=== PATIENT | male | born 1995 | race Native Hawaiian/Other Pacific Islander ===

== ENCOUNTER 2016-09-20 18:28 | Emergency (ER) | payer SELFPAY ==
[2016-09-20] MEDS ORDERED: AZITHROMYCIN 500 MG TAB PO STA (19:59)
[2016-09-20] MEDS ORDERED: cefTRIAXone 250 MG VIAL IM STA (19:59)
[2016-09-20 20:29] LABS: Appearance,Urine Turbid (Clear); Bacteria,Urine Moderate /hpf; Bilirubin,Urine Negative (Negative); Glucose,Urine (UA) Negative (Negative); Ketones,Urine Negative (Negative); Leukocyte Esterase,Urine Large (Negative); Nitrite,Urine Negative (Negative); Particle Count 5805; Protein,Urine 2+ (Negative); RBC,Urine 85 /hpf (0-5); Sperm,Urine Few /hpf; UA Billing (MACRO vs. MICRO) MICRO; WBC,Urine >182 /hpf (0-5)
--- NOTE | 2016-09-20 20:57 | ED ---
Male Urogenital HPI - General Chief complaint: Urogenital Stated complaint: GROIN PAIN AND SWELLING Time Seen by Provider: 09/20/16 19:30 Source: patient Mode of arrival: ambulatory Limitations: no limitations - History of Present Illness Initial comments: Patient is a 21-year-old male without past medical history presenting with right testicle pain and swelling. Onset was 4 days ago. Patient has not tried anything for the pain. Patient does not relate anything that worsens the pain. Patient admits to STI treatment and November 2015. Patient states he's sexual active with multiple female partners. Patient denies penile discharge. Patient denies fever, chills, abdominal pain, nausea, vomiting, diarrhea, dysuria. Patient was offered STI prophylaxis for which he is accepting. - Related Data Previous Rx's Medication Instructions Recorded Doxycycline Monohydrate [Monodox] 100 mg PO Q12HR #28 cap 09/20/16 Allergies Allergy/AdvReac Type Severity Reaction Status Date / Time No Known Allergies Allergy Verified 09/20/16 19:52 Review of Systems ROS Statement: Those systems with pertinent positive or pertinent negative responses have been documented in the HPI. Constitutional: No fever and no chills. HENT: No congestion, no rhinorrhea and no sore throat. Eyes: No discharge and no redness. Respiratory: No cough and no shortness of breath. Cardiovascular: No chest pain and no palpitations. Gastrointestinal: No nausea, no vomiting, no abdominal pain and no diarrhea. Genitourinary: Positive testicular pain and swelling. No dysuria and no hematuria. Musculoskeletal: No back pain and no arthralgias. Skin: No pallor and no rash. Neurological: No dizziness and No headaches. ROS Other: All systems not noted in ROS Statement are negative. Past Medical History Past Medical History: No Reported History History of Any Multi-Drug Resistant Organisms: None Reported Past Surgical History: Appendectomy Past Psychological History: No Psychological Hx Reported Smoking Status: Never smoker Past Alcohol Use History: None Reported Past Drug Use History: None Reported General Exam - General Exam Comments Initial Comments: Constitutional: Patient appears well-developed and well-nourished. No distress. Head: Normocephalic and atraumatic. Eyes: Conjunctivae and EOM are normal. Right eye exhibits no discharge. Left eye exhibits no discharge. No scleral icterus. Neck: Normal range of motion. Neck supple. Cardiovascular: Normal rate and regular rhythm. No murmur heard. Pulmonary/Chest: Effort normal and breath sounds normal. No respiratory distress. No wheezes. Abdominal: Soft. No distension. There is no tenderness. There is no rebound and no guarding. Musculoskeletal: Normal range of motion. No edema or tenderness. exam performed with the nurse Uncircumcised penis, tender right testicle without obvious swelling. Bilateral nontender epididymis. Nontender left testicle. Cremasteric reflex present bilaterally. Normal lie of b/l testicles. No penile discharge. Nontender shaft of the penis. No inguinal hernias bilaterally. Neurological: Patient alert and oriented to person, place, and time. Skin: Skin is warm and dry. Not diaphoretic. Nursing notes and vitals reviewed. Limitations: no limitations Course Vital Signs 09/20/16 18:50 Temperature 98.1 F Pulse Rate 59 L Respiratory 20 Rate Blood Pressure 139/66 O2 Sat by Pulse 98 Oximetry - Reevaluation(s) Reevaluation #1: 09/20/16 22:54 Patient resting comfortably in bed. Updated on results. Medical Decision Making - Medical Decision Making Patient is a 21-year-old male presenting with right testicular pain and swelling. Ultrasound shows blood flow to both testicles. UA concerning for infection with greater than urine 182 WBCs. Patient also accepting STI prophylaxis. He will be treated with doxycycline for 2 weeks. Urine culture as well as gonorrhea and chlamydia cultures were sent. Patient informed to avoid sexual intercourse until urine cultures have resulted. Patient to take Motrin for his pain. Prior to discharge, patient was resting comfortably in bed. Course of stay improved. Denies pain. Discussed physical exam and diagnostic tests with patient. Questions answered and patient is agreeable to discharge with close follow up with Primary Care Physician. Instructed to return to Emergency Department if symptoms worsen. - Lab Data Lab Results 09/20/16 Range/Units 20:15 Urine Color Yellow Urine Appearance Turbid (Clear) Urine pH 6.0 (5.0-8.0) Ur Specific [place] 1.020 (1.001-1.035) Urine Protein 2+ H (Negative) Urine Glucose (UA) Negative (Negative) Urine Ketones Negative (Negative) Urine Blood Moderate H (Negative) Urine Nitrate Negative (Negative) Urine Bilirubin Negative (Negative) Urine Urobilinogen 2.0 (<2.0) mg/dL Ur Leukocyte Esterase Large H (Negative) Urine RBC 85 H (0-5) /hpf Urine WBC >182 H (0-5) /hpf Urine WBC Clumps Few H (None) /hpf Urine Bacteria Moderate H (None) /hpf Urine Sperm Few H (None) /hpf Disposition Clinical Impression: UTI (urinary tract infection), Orchitis Disposition: HOME SELF-CARE Condition: Good Instructions: Urinary Tract Infection in Men (ED), Testicle Pain (ED), Epididymo-Orchitis (ED) Prescriptions: Doxycycline Monohydrate [Monodox] 100 mg PO Q12HR #28 cap Referrals: None,Stated [Primary Care Provider] - 1-2 days Larry Lau MD [REFERRING] - 1-2 days
--- NOTE | 2016-09-20 21:43 | US ---
EXAMINATION TYPE: US scrotum with doppler. Grayscale and color Doppler Duplex imaging performed of t david scrotum. DATE OF EXAM: 09/20/2016 9:03 PM COMPARISON: NONE CLINICAL HISTORY: Pain and swelling in the right testicle x1 week. EXAM MEASUREMENTS: TESTICLES: Right Testicle: 4.6 x 2.2 x 3.0 cm Left Testicle: 4.7 x 2.3 x 2.8 cm EPIDIDYMIS HEAD: Right Epididymis: 0.8 cm Left Epididymis: 0.9 cm Doppler performed to assess for testicular vascularity; good bilateral color flow and waveforms are s een. There is no evidence of testicular torsion. Presence of hydroceles: Yes, on the left Presence of varicoceles: Yes, on the right NOTE: A few scattered tiny echognic foci are visualized , with acoustic shadowing, within the right testicle - consistent with microlithiasis IMPRESSION: 1 . NO ACUTE PROCESS. 2. Incidental finding: Microlithiasis right testicle.
[2016-09-20 23:06] VITALS: BP 128/72; PULSE 78; RESP 18; TEMP 97.6
== END 2016-09-20 23:05 | disposition home or self-care (01) ==
LOC: EC 18:28
DX: N39.0 Urinary tract infection, site not specified (principal); N45.2 Orchitis
CPT/HCPCS: 99283; 96372; 81001; 87491; 87591; 93975; 76870; J0696

== ENCOUNTER 2016-09-23 11:03 | Emergency (ER) | payer SELFPAY ==
[2016-09-23 11:14] VITALS: BP 125/66; PULSE 60; RESP 18; TEMP 99.3
--- NOTE | 2016-09-23 11:33 | ED ---
General Adult HPI - General Chief complaint: Recheck/Abnormal Lab/Rx Stated complaint: Swollen Lymphnode Time Seen by Provider: 09/23/16 11:19 Source: patient, RN notes reviewed Mode of arrival: ambulatory Limitations: no limitations - History of Present Illness Initial comments: 21-year-old male presents emergency Department stating that he has ongoing groin lymph nodes. Patient states his been on and off for last 2 years. Patient recently was here had shortness swelling. Patient labs were reviewed tested positive for chlamydia. Patient was given Rocephin and azithromycin. Patient states that he's had no fevers no chills no increased swelling. Patient states that he states is concerned disease had his ongoing lymph nodes and is concerned about cancer. Patient has not followed up as instructed. - Related Data Previous Rx's Medication Instructions Recorded Doxycycline Monohydrate [Monodox] 100 mg PO Q12HR #28 cap 09/20/16 Allergies Allergy/AdvReac Type Severity Reaction Status Date / Time No Known Allergies Allergy Verified 09/23/16 11:14 Review of Systems ROS Statement: Those systems with pertinent positive or pertinent negative responses have been documented in the HPI. ROS Other: All systems not noted in ROS Statement are negative. Past Medical History Past Medical History: No Reported History History of Any Multi-Drug Resistant Organisms: None Reported Past Surgical History: Appendectomy Past Psychological History: No Psychological Hx Reported Smoking Status: Never smoker Past Alcohol Use History: None Reported Past Drug Use History: None Reported General Exam Limitations: no limitations General appearance: alert, in no apparent distress Head exam: Present: atraumatic, normocephalic, normal inspection Neck exam: Present: normal inspection, full ROM. Absent: tenderness, meningismus, lymphadenopathy Respiratory exam: Present: normal lung sounds bilaterally. Absent: respiratory distress, wheezes, rales, rhonchi, stridor Cardiovascular Exam: Present: regular rate, normal rhythm, normal heart sounds. Absent: systolic murmur, diastolic murmur, rubs, gallop, clicks GI/Abdominal exam: Present: soft, normal bowel sounds. Absent: distended, tenderness, guarding, rebound, rigid Extremities exam: Present: other (Lymphadenopathy groin) Course Vital Signs 09/23/16 11:10 Temperature 99.3 F Pulse Rate 60 Respiratory 18 Rate Blood Pressure 125/66 O2 Sat by Pulse 99 Oximetry Medical Decision Making - Medical Decision Making 21-year-old male for lymph node swelling. Patient states this is ongoing. Patient is advised follow-up with oncologist/census taker. Number is provided. Patient agrees this plan. Patient was informed a does have Chlamydia. Disposition Clinical Impression: Chlamydia, Inguinal adenopathy Disposition: HOME SELF-CARE Condition: Stable Instructions: Chlamydia (ED) Additional Instructions: Please follow-up with outpatient resources primary care physician/oncologist. Please return to the Emergency Department if symptoms worsen or any other concerns. Referrals: Rosetta Karimi MD [STAFF PHYSICIAN] - 1-2 days Larry Lau MD [REFERRING] - 1-2 days Time of Disposition: 11:33
== END 2016-09-23 12:02 | disposition home or self-care (01) ==
LOC: EC 11:03
DX: R59.0 Localized enlarged lymph nodes (principal); A74.9 Chlamydial infection, unspecified
CPT/HCPCS: 99282

== ENCOUNTER 2017-06-12 18:46 | Emergency (ER) | payer OTHER ==
[2017-06-12 18:52] VITALS: RESP 16
--- NOTE | 2017-06-12 19:34 | XR ---
PROCEDURE: XR knee complete LT DATE AND TIME: 06/12/2017 7:09 PM REFERRING PHYSICIAN: Samaria Solis CLINICAL INDICATION: PHH, Pain TECHNIQUE: Department protocol. Previous. COMPARISON: None FINDINGS: There is no fracture or malalignment. The soft tissues are unremarkable. IMPRESSION: NO ACUTE PROCESS.
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
[2017-06-12 19:49] VITALS: BP 128/79; PULSE 67; TEMP 98.2
== END 2017-06-12 19:49 | disposition home or self-care (01) ==
LOC: EC 18:46
DX: S89.92XA Unspecified injury of left lower leg, initial encounter (principal); S50.811A Abrasion of right forearm, initial encounter; S50.812A Abrasion of left forearm, initial encounter; M67.432 Ganglion, left wrist; F17.200 Nicotine dependence, unspecified, uncomplicated; W03.XXXA Other fall on same level due to collision with another person, initial encounter; Y93.61 Activity, american tackle football
CPT/HCPCS: 99283 ×2; 73562; L1830

== ENCOUNTER 2019-11-06 00:38 | Emergency (ER) | payer OTHER ==
[2019-11-06] MEDS ORDERED: AZITHROMYCIN 500 MG TAB PO STA (00:48)
[2019-11-06] MEDS ORDERED: cefTRIAXone 250 MG VIAL IM STA (00:48)
[2019-11-06 00:59] VITALS: BP 118/74; PULSE 57; RESP 15; TEMP 98.1
--- NOTE | 2019-11-06 01:22 | ED ---
Male Urogenital HPI - General Chief complaint: Urogenital Stated complaint: Poss STI Source: patient Mode of arrival: ambulatory - History of Present Illness Initial comments: Patient is a 24-year-old male who states that he was told by a sexual partner that she had been treated for a sexual transmitted disease and that he needed to be tested and treated. He is uncertain what she was diagnosed with. Patient reports he's not having any symptoms he has no dysuria hematuria he has no rash or lesions on his genitals. - Related Data Previous Rx's Medication Instructions Recorded Doxycycline Monohydrate [Monodox] 100 mg PO Q12HR #28 cap 09/20/16 Allergies Allergy/AdvReac Type Severity Reaction Status Date / Time No Known Allergies Allergy Verified 06/12/17 18:52 Review of Systems ROS Statement: Those systems with pertinent positive or pertinent negative responses have been documented in the HPI. ROS Other: All systems not noted in ROS Statement are negative. Past Medical History Past Medical History: No Reported History History of Any Multi-Drug Resistant Organisms: None Reported Past Surgical History: Appendectomy Additional Past Surgical History / Comment(s): Pt states he has joint issues. Past Psychological History: No Psychological Hx Reported Smoking Status: Light tobacco smoker Past Alcohol Use History: None Reported Past Drug Use History: None Reported General Exam Limitations: no limitations General appearance: alert, in no apparent distress Head exam: Present: atraumatic, normocephalic Eye exam: Present: normal appearance Respiratory exam: Absent: respiratory distress Cardiovascular Exam: Present: bradycardia GI/Abdominal exam: Absent: distended Rectal exam: Present: deferred Extremities exam: Present: full ROM Neurological exam: Present: alert Psychiatric exam: Present: normal affect, normal mood Skin exam: Present: warm, dry, intact Course Vital Signs 11/06/19 00:55 Temperature 98.1 F Pulse Rate 57 L Respiratory 15 Rate Blood Pressure 118/74 O2 Sat by Pulse 100 Oximetry Medical Decision Making - Medical Decision Making The patient was seen and evaluated patient provided a urine sample for STI testing Patient was treated empirically for gonorrhea, chlamydia and Trichomonas Patient was advised that he will be contacted for any positives and I will be in 2-3 days. All questions pertaining care were answered return parameters were discussed patient was discharged home in stable condition. Disposition Clinical Impression: Exposure to sexually transmitted disease (STD) Disposition: HOME SELF-CARE Condition: Stable Instructions (If sedation given, give patient instructions): Safe Sex (ED) Is patient prescribed a controlled substance at d/c from ED?: No Referrals: None,Stated [Primary Care Provider] - 1-2 days
[2019-11-06] MEDS ORDERED: metroNIDAZOLE 500 MG TAB PO STA (01:39)
== END 2019-11-06 01:59 | disposition home or self-care (01) ==
LOC: EC 00:38
DX: Z20.2 Contact with and (suspected) exposure to infections with a predominantly sexual mode of transmission (principal); R00.1 Bradycardia, unspecified; F17.210 Nicotine dependence, cigarettes, uncomplicated
CPT/HCPCS: 87491; 87591; 96372; 99283; J0696

== ENCOUNTER 2022-05-19 14:43 | Emergency (ER) | payer SELFPAY ==
[2022-05-19 14:48] VITALS: BP 146/72; PULSE 77; RESP 16; TEMP 98.5
[2022-05-19] MEDS ORDERED: metroNIDAZOLE 500 MG TAB PO STA (15:10)
[2022-05-19] MEDS ORDERED: cefTRIAXone 250 MG VIAL IM STA (15:10)
[2022-05-19] MEDS ORDERED: AZITHROMYCIN 500 MG TAB PO STA (15:10)
--- NOTE | 2022-05-19 15:15 | ED ---
General Adult HPI - General Chief complaint: Urogenital Stated complaint: STI testing,poss cyst on face/hands Time Seen by Provider: 05/19/22 15:04 Source: patient Mode of arrival: ambulatory Limitations: no limitations - History of Present Illness Initial comments: Dictation was produced using [employer] dictation software. please excuse any grammatical, word or spelling errors. Chief Complaint: 27 yo male presents emergency department for STD check History of Present Illness: 27-year-old male presents emergency department for STD check. Patient has been told by a female that he's been having sexual relations with that he should get tested. Unclear if this female that he's encountered had tested positive for anything. Patient denies any symptoms. Denies any dysuria. Denies any fever. No arthralgias. Denies any genital lesions. The ROS documented in this emergency department record has been reviewed and confirmed by me. Those systems with pertinent positive or negative responses have been documented in the HPI. All other systems are other negative and/or noncontributory. PHYSICAL EXAM: General Impression: Alert and oriented x3, not in acute distress HEENT: Normocephalic atraumatic, extra-ocular movements intact, pupils equal and reactive to light bilaterally, mucous membranes moist. Cardiovascular: Heart regular rate and rhythm Chest: Able to complete full sentences, no retractions, no tachypnea Abdomen: abdomen soft, non-tender, non-distended, no organomegaly Musculoskeletal: Pulses present and equal in all extremities, no peripheral edema Motor: no focal deficits noted Neurological: CN II-XII grossly intact, no focal motor or sensory deficits noted Skin: Intact with no visualized rashes Psych: Normal affect and mood ED course: 27 yo male presents emergency department for STD check. Patient reports having been told by a person he had sexual relations with to get tested. Signs upon arrival are within acceptable limits. Physical examination is benign. Patient treated empirically for high-risk sexual practices given his age. Patient treated with azithromycin, ceftriaxone and Flagyl. Urine sent for testing. Patient be discharged. - Related Data Previous Rx's Medication Instructions Recorded Doxycycline Monohydrate [Monodox] 100 mg PO Q12HR #28 cap 09/20/16 Allergies Allergy/AdvReac Type Severity Reaction Status Date / Time No Known Allergies Allergy Verified 05/19/22 14:48 Review of Systems ROS Statement: Those systems with pertinent positive or pertinent negative responses have been documented in the HPI. ROS Other: All systems not noted in ROS Statement are negative. Past Medical History Past Medical History: No Reported History History of Any Multi-Drug Resistant Organisms: None Reported Past Surgical History: Appendectomy Additional Past Surgical History / Comment(s): Pt states he has joint issues. Past Psychological History: No Psychological Hx Reported Smoking Status: Vaper Past Alcohol Use History: None Reported Past Drug Use History: None Reported General Exam Limitations: no limitations Course Vital Signs 05/19/22 14:46 Temperature 98.5 F Pulse Rate 77 Respiratory 16 Rate Blood Pressure 146/72 O2 Sat by Pulse 100 Oximetry Disposition Clinical Impression: Possible exposure to STD Disposition: HOME SELF-CARE Condition: Good Instructions (If sedation given, give patient instructions): Sexually Transmitted Diseases (ED) Is patient prescribed a controlled substance at d/c from ED?: No Referrals: Larry Lau MD [Primary Care Provider] - 1-2 days Time of Disposition: 15:15
[2022-05-19 16:09] LABS: Appearance,Urine Clear (Clear); Bacteria,Urine Rare /hpf; Bilirubin,Urine Negative (Negative); Blood,Urine Negative (Negative); Color,Urine Yellow; Glucose,Urine (UA) Negative (Negative); Ketones,Urine Negative (Negative); Leukocyte Esterase,Urine Small (Negative); Mucus,Urine Occasional /hpf; Nitrite,Urine Negative (Negative); Protein,Urine Trace (Negative); RBC,Urine 2 /hpf (0-5); Specific Gravity,Urine 1.023 (1.001-1.035); Urobilinogen,Urine <2.0 mg/dL (<2.0); WBC,Urine 23 /hpf (0-5)
== END 2022-05-19 15:40 | disposition home or self-care (01) ==
LOC: EC 14:43
DX: Z20.2 Contact with and (suspected) exposure to infections with a predominantly sexual mode of transmission (principal); F17.290 Nicotine dependence, other tobacco product, uncomplicated
CPT/HCPCS: 81001; 87491; 87591; 99283; 96372; J0696

== ENCOUNTER 2023-10-15 15:41 | Emergency (ER) | payer OTHER ==
--- NOTE | 2023-10-15 17:21 | ED ---
General Adult HPI - General Chief complaint: Upper Respiratory Infection Stated complaint: SOB Time Seen by Provider: 10/15/23 16:11 Source: patient, RN notes reviewed Mode of arrival: ambulatory Limitations: no limitations - History of Present Illness Initial comments: Patient is a 28-year-old male presenting to the ER with a chief complaint of chest tightness. States this been going on for about 2 years and reports he has had an increase in symptoms for the past 2 weeks. He states it started on the left side and now is an on the right and in his back. He reports it is a pressure feeling and a feeling that he cannot take a deep breath. Denies any fevers, chills, night sweats, cough, congestion. Patient has been using albuterol inhaler at home without relief. He is worried he has a pulmonary embolism. Patient also is reporting a sensation of rectal pain with "something coming out" when he has bowel movements. Denies any blood in his stool or when wiping. Patient has no other complaints at this time. - Related Data Previous Rx's Medication Instructions Recorded Doxycycline Monohydrate [Monodox] 100 mg PO Q12HR #28 cap 09/20/16 Cephalexin [Keflex] 500 mg PO Q6HR 5 Days #20 cap 10/11/22 Allergies Allergy/AdvReac Type Severity Reaction Status Date / Time No Known Allergies Allergy Verified 10/11/22 11:17 Review of Systems ROS Statement: Those systems with pertinent positive or pertinent negative responses have been documented in the HPI. ROS Other: All systems not noted in ROS Statement are negative. Past Medical History Past Medical History: No Reported History History of Any Multi-Drug Resistant Organisms: None Reported Past Surgical History: Appendectomy Additional Past Surgical History / Comment(s): Pt states he has joint issues. Past Psychological History: No Psychological Hx Reported Smoking Status: Vaper Past Alcohol Use History: Occasional Past Drug Use History: Marijuana General Exam Limitations: no limitations General appearance: alert, in no apparent distress Head exam: Present: atraumatic, normocephalic, normal inspection Eye exam: Present: normal appearance, PERRL, EOMI. Absent: scleral icterus, conjunctival injection, periorbital swelling Respiratory exam: Present: normal lung sounds bilaterally. Absent: respiratory distress, wheezes, rales, rhonchi, stridor Cardiovascular Exam: Present: regular rate, normal rhythm, normal heart sounds. Absent: systolic murmur, diastolic murmur, rubs, gallop, clicks GI/Abdominal exam: Present: soft, normal bowel sounds. Absent: distended, tenderness, guarding, rebound, rigid Neurological exam: Present: alert, oriented X3, CN II-XII intact Psychiatric exam: Present: normal affect, normal mood, anxious Skin exam: Present: warm, dry, intact, normal color. Absent: rash Course Vital Signs 10/15/23 10/15/23 15:55 19:26 Temperature 97.8 F 98.1 F Pulse Rate 95 64 Respiratory 20 12 Rate Blood Pressure 132/86 110/77 O2 Sat by Pulse 97 97 Oximetry Medical Decision Making - Medical Decision Making Was pt. sent in by a medical professional or institution ([facility], [employer], urgent care, hospital, or jail...) When possible be specific @ -No Did you speak to anyone other than the patient for history (EMS, parent, family, police, friend...)? What history was obtained from this source @ -No Did you review nursing and triage notes (agree or disagree)? Why? @ -I reviewed and agree with nursing and triage notes Were old charts reviewed (outside hosp., previous admission, EMS record, old EK G, old radiological studies, urgent care reports/EKG's, jail records)? Report findings @ -No old charts were reviewed Differential Diagnosis (chest pain, altered mental status, abdominal pain women, abdominal pain men, vaginal bleeding, weakness, fever, dyspnea, syncope, headache, dizziness, GI bleed, back pain, seizure, CVA, palpatations, mental health, musculoskeletal)? @ -Differential Chest Pain: Stable Angina, Unstable Angina, STEMI, NSTEMI Aortic Dissection, Pneumothorax, Musculoskeletal, Esophageal Spasm GERD, Cholecystitis, Pancreatitis, Zoster, this is not meant to be an all-inclusive list. EKG interpreted by me (3pts min.). @ -As above X-rays interpreted by me (1pt min.). @ -Chest x-ray interpreted by me negative for acute cardiopulmonary process. CT interpreted by me (1pt min.). @ -None done U/S interpreted by me (1pt. min.). @ -None done What testing was considered but not performed or refused? (CT, X-rays, U/S, labs)? Why? @ -None What meds were considered but not given or refused? Why? @ -None Did you discuss the management of the patient with other professionals (professionals i.e. , PA, [employer]ER, lab, RT, psych nurse, transition social worker, aircraft refueller, teacher, evp chief exploration officer, case resource manager)? Give summary @ -No Was smoking cessation discussed for >3mins.? @ -I discussed smoking cessation for greater than 3 minutes. The risk of smoking were discussed with the patient including but not limited to risks of cancer, stroke, coronary artery disease and COPD. Also discussed with patient were multiple methods of quitting smoking. Lastly we discussed the financial cost of smoking. Was critical care preformed (if so, how long)? @ -No Were there social determinants of health that impacted care today? How? (Homelessness, low income, unemployed, alcoholism, drug addiction, transportation, low edu. Level, literacy, decrease access to med. care, snf, rehab)? @ -No Was there de-escalation of care discussed even if they declined (Discuss DNR or withdrawal of care, Hospice)? DNR status @ -No What co-morbidities impacted this encounter? (DM, HTN, Smoking, COPD, CAD, Cancer, CVA, ARF, Chemo, Hep., AIDS, mental health diagnosis, sleep apnea, morbid obesity)? @ -Smoker Was patient admitted / discharged? Hospital course, mention meds given and route, prescriptions, significant lab abnormalities, going to OR and other pertinent info. @ -Discharged. Patient is a 28 year old male presenting to the ER with a chief complaint of chest discomfort. History and physical exam were completed. Vitals stable. Patient in no signs of acute distress. Non-toxic appearing. Lung sounds clear bilaterally. Dr. Babb competed rectal exam as patient was report rectal pain and reported no hemorrhoids or anal fissures. Labs obtained in the ER unremarkable. EKG showed normal sinus rhythm with sinus arrhythmia. No acute evidence of infarct or ischemia. Chest x-ray interpreted by me shows no acute cardiopulmonary process. Results discussed with patient, all questions answered. Advised patient to follow-up with GI for further evaluation of rectal pain. I discussed smoking cessation for greater than 3 minutes. The risk of smoking were discussed with the patient including but not limited to risks of cancer, stroke, coronary artery disease and COPD. Also discussed with patient were multiple methods of quitting smoking. Lastly we discussed the financial cost of smoking. Return parameters were discussed. Referrals given. Patient be discharged stable condition with follow-up to GI/PCP. Patient expressed understanding and agreement with care plan. Undiagnosed new problem with uncertain prognosis? @ -No Drug Therapy requiring intensive monitoring for toxicity (Heparin, Nitro, Insulin, Cardizem)? @ -No Were any procedures done? @ -No Diagnosis/symptom? @ -Rectal pain/atypical chest pain Acute, or Chronic, or Acute on Chronic? @ -Acute Uncomplicated (without systemic symptoms) or Complicated (systemic symptoms)? @ -Uncomplicated Side effects of treatment? @ -No Exacerbation, Progression, or Severe Exacerbation? @ -No Poses a threat to life or bodily function? How? (Chest pain, [place], [place], pneumonia, PE, COPD, DKA, ARF, appy, cholecystitis, CVA, Diverticulitis, Homicidal, Suicidal, threat to staff... and all critical care pts) @ -No - Lab Data Result diagrams: 10/15/23 17:35 10/15/23 17:35 Lab Results 10/15/23 10/15/23 10/15/23 Range/Units 17:35 17:35 17:35 WBC 8.2 (3.8-10.6) k/uL RBC 5.47 (4.30-5.90) m/uL Hgb 15.6 (13.0-17.5) gm/dL Hct 46.8 (39.0-53.0) % MCV 85.6 (80.0-100.0) fL MCH 28.5 (25.0-35.0) pg MCHC 33.4 (31.0-37.0) g/dL RDW 12.3 (11.5-15.5) % Plt Count 208 (150-450) k/uL MPV 8.7 PT 11.4 (10.0-12.5) sec INR 1.0 (<1.2) APTT 24.5 (22.0-30.0) sec D-Dimer <0.17 (<0.60) mg/L FEU Sodium 139 (137-145) mmol/L Potassium 5.8 H (3.5-5.1) mmol/L Chloride 108 H (98-107) mmol/L Carbon Dioxide 25 (22-30) mmol/L Anion Gap 6 mmol/L BUN 13 (9-20) mg/dL Creatinine 0.96 (0.66-1.25) mg/dL Est GFR (CKD-EPI)AfAm >90 (>60 ml/min/1.73 sqM) Est GFR (CKD-EPI)NonAf >90 (>60 ml/min/1.73 sqM) Glucose 91 (74-99) mg/dL Calcium 9.7 (8.4-10.2) mg/dL Total Bilirubin 0.8 (0.2-1.3) mg/dL AST 34 (17-59) U/L ALT 15 (4-49) U/L Alkaline Phosphatase 68 (38-126) U/L Troponin I (0.000-0.034) ng/mL Total Protein 7.5 (6.3-8.2) g/dL Albumin 4.6 (3.5-5.0) g/dL 10/15/23 Range/Units 17:35 WBC (3.8-10.6) k/uL RBC (4.30-5.90) m/uL Hgb (13.0-17.5) gm/dL Hct (39.0-53.0) % MCV (80.0-100.0) fL MCH (25.0-35.0) pg MCHC (31.0-37.0) g/dL RDW (11.5-15.5) % Plt Count (150-450) k/uL MPV PT (10.0-12.5) sec INR (<1.2) APTT (22.0-30.0) sec D-Dimer (<0.60) mg/L FEU Sodium (137-145) mmol/L Potassium (3.5-5.1) mmol/L Chloride (98-107) mmol/L Carbon Dioxide (22-30) mmol/L Anion Gap mmol/L BUN (9-20) mg/dL Creatinine (0.66-1.25) mg/dL Est GFR (CKD-EPI)AfAm (>60 ml/min/1.73 sqM) Est GFR (CKD-EPI)NonAf (>60 ml/min/1.73 sqM) Glucose (74-99) mg/dL Calcium (8.4-10.2) mg/dL Total Bilirubin (0.2-1.3) mg/dL AST (17-59) U/L ALT (4-49) U/L Alkaline Phosphatase (38-126) U/L Troponin I <0.012 (0.000-0.034) ng/mL Total Protein (6.3-8.2) g/dL Albumin (3.5-5.0) g/dL - EKG Data -: EKG Interpreted by Me EKG Comments: EKG taken at 17: 28 shows a normal sinus rhythm with sinus arrhythmia. No acute ST segment or T wave abnormalities. Ventricular rate 66, MI interval 179, QRS duration 96, QT/QTc 368/381. - Radiology Data Radiology results: report reviewed, image reviewed Disposition Clinical Impression: Atypical chest pain, Rectal pain, Nicotine dependence Disposition: HOME SELF-CARE Condition: Stable Instructions (If sedation given, give patient instructions): How to Stop Smoking (ED) Additional Instructions: Please follow-up with PCP in the next 1 to 2 days. Follow-up with GI. Return to the ER for any new or worsening symptoms. Is patient prescribed a controlled substance at d/c from ED?: No Referrals: None,Stated [Primary Care Provider] - 1-2 days Lynnette Rivera MD [STAFF PHYSICIAN] - 1-2 days Time of Disposition: 19:12
[2023-10-15 17:50] LABS: HCT 46.8 % (39.0-53.0); HGB 15.6 gm/dL (13.0-17.5); MCH 28.5 pg (25.0-35.0); MCHC 33.4 g/dL (31.0-37.0); MCV 85.6 fL (80.0-100.0); Mean Platelet Volume 8.7; Platelet Count 208 k/uL (150-450); RBC 5.47 m/uL (4.30-5.90); RDW 12.3 % (11.5-15.5); WBC 8.2 k/uL (3.8-10.6)
[2023-10-15 18:18] LABS: ALT 15 U/L (4-49); AST 34 U/L (17-59); African American GFR (CKD) >90 (>60 ml/min/1.73 sqM); Albumin 4.6 g/dL (3.5-5.0); Alkaline Phosphatase 68 U/L (38-126); Anion Gap 6 mmol/L; Blood Urea Nitrogen 13 mg/dL (9-20); Calcium 9.7 mg/dL (8.4-10.2); Carbon Dioxide 25 mmol/L (22-30); Chloride 108 mmol/L (98-107); Glucose 91 mg/dL (74-99); Non-African American GFR(CKD) >90 (>60 ml/min/1.73 sqM); Sodium 139 mmol/L (137-145); Total Bilirubin 0.8 mg/dL (0.2-1.3); Total Protein 7.5 g/dL (6.3-8.2)
[2023-10-15 18:20] LABS: Potassium 5.8 mmol/L (3.5-5.1)
[2023-10-15 18:22] LABS: Partial Thromboplastin Time 24.5 sec (22.0-30.0); Prothrombin Time 11.4 sec (10.0-12.5)
--- NOTE | 2023-10-15 18:53 | XR ---
EXAMINATION TYPE: XR chest 2V DATE OF EXAM: 10/15/2023 COMPARISON: 11/12/2014 HISTORY: 28-year-old male with chest pain, cough and congestion TECHNIQUE: PA and lateral views FINDINGS: The cardiomediastinal silhouette, aorta, and pulmonary vasculature are within normal limits. Lungs an d pleural spaces are clear. IMPRESSION: No acute cardiopulmonary process.
[2023-10-15 19:30] VITALS: BP 110/77; PULSE 64; RESP 12; TEMP 98.1
== END 2023-10-15 19:29 | disposition home or self-care (01) ==
LOC: EC 15:41
DX: K62.89 Other specified diseases of anus and rectum (principal); R07.89 Other chest pain; F12.90 Cannabis use, unspecified, uncomplicated; F17.290 Nicotine dependence, other tobacco product, uncomplicated
CPT/HCPCS: 36415; 71046; 80053; 84484; 85027; 85379; 85610; 85730; 93005; 99285